=== PATIENT | female | born 1995 | race Caucasian/White ===

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

== ENCOUNTER 2020-06-16 14:47 | Inpatient (IN) ==
[2020-06-16] MEDS ORDERED: *HR* Nalbuphine 10 MG/ML AMPUL IV PRN (14:59)
[2020-06-16] MEDS ORDERED: Ondansetron 4 MG/2 ML VIAL IVP PRN ×2 (14:59→16:41)
[2020-06-16] MEDS ORDERED: Famotidine 20 MG/2 ML VIAL IVP PRN (14:59)
[2020-06-16] MEDS ORDERED: Naloxone 0.4 MG/ML INJ IVP PRN ×2 (14:59→16:41)
[2020-06-16] MEDS ORDERED: Metoclopramide 10 MG/2 ML VIAL IVP PRN (14:59)
[2020-06-16] MEDS ORDERED: Oxytocin 20 units/ LR 1000 mL 20 UNIT/1,000 ML BAG IVC SCH ×2 (15:15→20:28)
[2020-06-16] MEDS: Ringers Solution, Lactated 1,000 ML IVC SCH ×2 (15:42→17:20)
[2020-06-16 15:57] LABS: Amphetamine Screen,Urine Negative ng/mL (Cutoff=1000); Barbiturate Screen,Urine Negative ng/mL (Cutoff=200); Basophils # 0.1 K/mcL (0.0-0.2); Basophils % 0.3 %; Benzodiazepines Screen,Urine Negative ng/mL (Cutoff=200); Cannabinoid Screen,Urine Negative ng/mL (Cutoff = 50); Cocaine Screen,Urine Negative ng/mL (Cutoff= 300); Eosinophils # 0.8 K/mcL (0.0-0.6); Eosinophils % 5.1 %; Hematocrit 33.1 % (35.3-44.9); Hemoglobin 10.9 g/dL (11.5-15.4); Immature Granulocytes % 0.4 % (0-4); Lymphocytes # 2.1 K/mcL (0.6-4.6); Mean Corpuscular HGB Conc 32.9 g/dL (31.6-35.5); Mean Corpuscular Hemoglobin 27.2 pg (28.0-33.3); Mean Corpuscular Volume 82.5 fL (83.0-100.0); Mean Platelet Volume 9.1 fL (9.4-12.4); Monocytes # 0.6 K/mcL (0.0-1.3); Monocytes % 4.3 %; Neutrophils # 11.4 K/mcL (1.6-8.9); Opiate Screen,Urine Negative ng/mL (Cutoff=300); Phencyclidine Screen,Urine Negative ng/mL (Cutoff=25); Platelet Count 320 K/mcL (140-400); Red Blood Count 4.01 M/mcL (3.82-4.97); Red Cell Distribution Width 14.6 % (11.5-14.5); Segmented Neutrophils % 75.9 %
[2020-06-16] MEDS ORDERED: EPHEDrine 50 MG/ML VIAL IVP PRN (16:41)
[2020-06-16] MEDS ORDERED: *HR* FentaNYL (PF) 100 MCG/2 ML VIAL EP ONE (16:41)
[2020-06-16] MEDS ORDERED: Epidural Premix (fent/bupiv) 110 ML EP SCH (16:45)
[2020-06-16] MEDS ORDERED: *HR* HYDROcodone/Acet 5/325 mg TABLET PO PRN (20:28)
[2020-06-16] MEDS ORDERED: Acetaminophen 325 MG TABLET PO PRN (20:28)
[2020-06-16] MEDS ORDERED: Benzocaine/Menthol 56 GM AEROSOL SPRAY TP PRN (20:28)
[2020-06-17] MEDS: Ibuprofen 600 MG TABLET PO PRN ×2 (00:04→08:48)
[2020-06-17] MEDS ORDERED: Prenatal Vit/FA 1 EACH TABLET PO SCH (09:00)
[2020-06-17 23:30] VITALS: BP 125/73
== END 2020-06-17 23:00 | disposition home or self-care (01) ==
LOC: 1NENULAB → OBSVTOIN 14:47 → 1NENUOBS 22:11
PROVIDERS: ADMIT Advanced Practice Midwife; ATTEND Advanced Practice Midwife